=== PATIENT | female | born 1970 | race Caucasian/White ===

== ENCOUNTER 2017-09-28 05:55 | Inpatient (IN) | payer OTHER ==
[2017-09-28] MEDS ORDERED: LIDOCAINE 2% (SDV) 5 ML INJ (06:23)
[2017-09-28] MEDS ORDERED: PROPOFOL 20 ML (06:23)
[2017-09-28] MEDS ORDERED: GLYCOPYRROLATE 0.4 MG INJ (06:23)
[2017-09-28] MEDS ORDERED: ROCURONIUM 50 MG INJ (06:23)
[2017-09-28] MEDS ORDERED: NEOSTIGMINE 3 MG/3 ML SYRINGE (06:23)
[2017-09-28] MEDS ORDERED: FENTAnyl 50 MCG/ML VIAL (06:24)
[2017-09-28] MEDS ORDERED: MIDAZOLAM 1 MG/ML 2 ML INJ (06:24)
[2017-09-28] MEDS ORDERED: DEXAMETHASONE 4 MG/ML 1 ML INJ (06:25)
[2017-09-28] MEDS ORDERED: ONDANSETRON 4 MG INJ (06:25)
[2017-09-28] MEDS ORDERED: morphine SULFATE/PF (10 MG/10 ML) INJ (06:28)
[2017-09-28] MEDS ORDERED: ATROPINE 1 MG/10 ML SYRINGE IV (06:30)
[2017-09-28] MEDS ORDERED: MIDAZOLAM 1 MG/ML 2 ML INJ IV (06:30)
[2017-09-28] MEDS ORDERED: morphine (1 MG/ML) 10ML SYRINGE IV ×3 (06:30)
[2017-09-28] MEDS ORDERED: EPHEDrine SULFATE 50 MG/5 ML SYG IV (06:30)
[2017-09-28] MEDS ORDERED: ONDANSETRON 4 MG INJ IV (06:30)
[2017-09-28] MEDS ORDERED: OXYCODONE/ACETAMINOPHEN (5/325) TAB PO ×2 (06:30)
[2017-09-28] MEDS ORDERED: hydrALAzine 20 MG INJ IV (06:30)
[2017-09-28] MEDS ORDERED: DIPHENHYDRAMINE 50 MG INJ IV (06:30)
[2017-09-28] MEDS ORDERED: MEPERIDINE 25 MG INJ IV (06:30)
[2017-09-28] MEDS ORDERED: LABETALOL HCL 20MG INJ IV (06:30)
[2017-09-28] MEDS ORDERED: FENTAnyl 50 MCG/ML VIAL IV ×2 (06:30)
[2017-09-28] MEDS ORDERED: HYDROmorphONE (0.2 MG/ML) 10ML SYG IV ×3 (06:30)
[2017-09-28] MEDS ORDERED: BUPIVACAINE 0.75%/DEXT (SPINAL) 2 ML INJ (06:42)
[2017-09-28] MEDS ORDERED: CEFAZOLIN 1 GM INJ (07:00)
[2017-09-28] MEDS ORDERED: LABETALOL HCL 20MG INJ (08:21)
[2017-09-28] MEDS: VASOPRESSIN 20 UNITS INJ (08:21)
[2017-09-28] MEDS: LACTATED RINGER'S 1,000 ML IV ×3 (11:34→20:17)
[2017-09-28 15:18] LABS: ADD MAN DIFF? NO
[2017-09-28 15:26] LABS: ABNORMAL IP MESSAGE 1; BASOPHILS % 0.1 % (0.0-2.0); HEMATOCRIT 38.6 % (37.0-47.0); HEMOGLOBIN 13.1 g/dl (12.0-16.0); LYMPHOCYTES # 0.6 10^3/ul (0.8-2.9); LYMPHOCYTES % 3.9 % (15.0-51.0); MEAN CORPUSCULAR HGB CONC 33.9 g/dl (32.0-37.0); MEAN CORPUSCULAR VOLUME 88.5 fl (82.0-101.0); MEAN PLATELET VOLUME 11.4 fl (7.4-10.4); MONOCYTE # 0.3 10^3/ul (0.3-0.9); MONOCYTES % 1.7 % (0.0-11.0); NEUTROPHIL # 13.9 10^3/ul (1.6-7.5); NEUTROPHILS % 93.8 % (39.0-77.0); PLATELET COUNT 282 10^3/UL (140-415); RED BLOOD COUNT 4.36 10^6/ul (4.20-5.40); RED CELL DISTRIBUTION WIDTH 11.8 % (11.5-14.5)
[2017-09-28 15:26] LABS: WHITE BLOOD COUNT 14.8 10^3/ul (4.8-10.8)
[2017-09-28 15:32] LABS: POSITIVE DIFF @See below
[2017-09-28 15:35] LABS: PLATELET COUNT 291 10^3/UL (140-415)
[2017-09-28 15:57] LABS: INR 1.08; PROTIME 14.1 Sec (11.9-14.9); PT RATIO 1.1
[2017-09-28 15:58] LABS: PARTIAL THROMBOPLASTIN TIME 31.8 Sec (25.0-35.0)
[2017-09-28 16:00] LABS: ALANINE AMINOTRANSFERASE 23 IU/L (13-69); ALBUMIN 3.6 g/dl (3.3-4.9); ALBUMIN/GLOBULIN RATIO 1.05; ALKALINE PHOSPHATASE 56 IU/L (42-121); ANION GAP 16 (8-16); ASPARTATE AMINO TRANSFERASE 24 IU/L (15-46); BILIRUBIN,INDIRECT 0.2 mg/dl (0-1.1); BILIRUBIN,TOTAL 0.2 mg/dl (0.2-1.3); BLOOD UREA NITROGEN 7 mg/dl (7-20); CALCIUM 8.4 mg/dl (8.4-10.2); CARBON DIOXIDE 25 mmol/L (21-31); CHLORIDE 106 mmol/L (97-110); CREATININE 0.63 mg/dl (0.44-1.00); GLUCOSE 140 mg/dl (70-220); POTASSIUM 3.8 mmol/L (3.5-5.1); SODIUM 143 mmol/L (135-144)
[2017-09-28 16:14] LABS: THROMBIN TIME 16.1 SEC (13.8-19.1)
[2017-09-28] MEDS: ONDANSETRON 4 MG INJ IV (20:08)
[2017-09-28] MEDS: DIPHENHYDRAMINE 25 MG CAP PO (21:20)
[2017-09-29] MEDS: LACTATED RINGER'S 1,000 ML IV (03:00)
[2017-09-29] MEDS: DIPHENHYDRAMINE 25 MG CAP PO (03:38)
[2017-09-29 05:16] LABS: ADD MAN DIFF? NO
[2017-09-29 05:28] LABS: BASOPHILS % 0.1 % (0.0-2.0); EOSINOPHILS % 0.1 % (0.0-7.0); HEMATOCRIT 30.9 % (37.0-47.0); HEMOGLOBIN 10.5 g/dl (12.0-16.0); LYMPHOCYTES # 1.3 10^3/ul (0.8-2.9); LYMPHOCYTES % 10.3 % (15.0-51.0); MEAN CORPUSCULAR HEMOGLOBIN 30.1 pg (29.0-33.0); MEAN CORPUSCULAR VOLUME 88.5 fl (82.0-101.0); MEAN PLATELET VOLUME 11.2 fl (7.4-10.4); MONOCYTES % 7.5 % (0.0-11.0); NEUTROPHIL # 10.3 10^3/ul (1.6-7.5); NEUTROPHILS % 81.6 % (39.0-77.0); PLATELET COUNT 268 10^3/UL (140-415); RED BLOOD COUNT 3.49 10^6/ul (4.20-5.40)
[2017-09-29 05:28] LABS: WHITE BLOOD COUNT 12.6 10^3/ul (4.8-10.8)
[2017-09-29 05:41] LABS: ALANINE AMINOTRANSFERASE 24 IU/L (13-69); ALKALINE PHOSPHATASE 43 IU/L (42-121); ANION GAP 12 (8-16); ASPARTATE AMINO TRANSFERASE 21 IU/L (15-46); BILIRUBIN,INDIRECT 0.2 mg/dl (0-1.1); BILIRUBIN,TOTAL 0.2 mg/dl (0.2-1.3); BLOOD UREA NITROGEN 6 mg/dl (7-20); CALCIUM 8.3 mg/dl (8.4-10.2); CARBON DIOXIDE 29 mmol/L (21-31); CHLORIDE 107 mmol/L (97-110); CREATININE 0.65 mg/dl (0.44-1.00); GLUCOSE 101 mg/dl (70-220); SODIUM 144 mmol/L (135-144)
[2017-09-29] MEDS: MAGNESIUM HYDROXIDE 30ML CUP PO ×2 (06:03→17:47)
[2017-09-29] MEDS: BISACODYL 10 MG SUPP PR ×2 (06:04→17:47)
[2017-09-29] MEDS: ONDANSETRON 4 MG INJ IV (07:48)
[2017-09-29 09:07] LABS: ADD UMIC NO; UR ASCORBIC ACID NEGATIVE (NEGATIVE); UR BILIRUBIN (Dip) NEGATIVE (NEGATIVE); UR BLOOD (Dip) NEGATIVE (NEGATIVE); UR CLARITY CLEAR (CLEAR); UR COLOR STRAW (YELLOW); UR GLUCOSE (Dip) NEGATIVE (NEGATIVE); UR KETONES (Dip) NEGATIVE (NEGATIVE); UR LEUKOCYTE ESTERASE (Dip) NEGATIVE Leu/ul (NEGATIVE); UR NITRITE (Dip) NEGATIVE (NEGATIVE); UR SPECIFIC GRAVITY (Dip) 1.006 (1.003-1.030); UR TOTAL PROTEIN (Dip) NEGATIVE (NEGATIVE); UR UROBILINOGEN (Dip) NEGATIVE (NEGATIVE)
[2017-09-29] MEDS ORDERED: OXYCODONE/ACETAMINOPHEN (5/325) TAB PO (09:30)
[2017-09-29] MEDS: OXYCODONE/ACETAMINOPHEN (5/325) TAB PO ×3 (09:32→20:24)
[2017-09-30] MEDS: IBUPROFEN 600 MG TAB PO ×2 (00:14→07:41)
[2017-09-30 05:30] LABS: ADD MAN DIFF? NO
[2017-09-30 05:32] LABS: WHITE BLOOD COUNT 7.2 10^3/ul (4.8-10.8)
[2017-09-30 05:32] LABS: BASOPHILS % 0.3 % (0.0-2.0); EOSINOPHILS # 0.1 10^3/ul (0.0-0.5); EOSINOPHILS % 0.7 % (0.0-7.0); HEMATOCRIT 29.8 % (37.0-47.0); HEMOGLOBIN 9.9 g/dl (12.0-16.0); LYMPHOCYTES # 1.9 10^3/ul (0.8-2.9); LYMPHOCYTES % 26.4 % (15.0-51.0); MEAN CORPUSCULAR HGB CONC 33.2 g/dl (32.0-37.0); MEAN CORPUSCULAR VOLUME 90.3 fl (82.0-101.0); MEAN PLATELET VOLUME 11.2 fl (7.4-10.4); MONOCYTE # 0.6 10^3/ul (0.3-0.9); MONOCYTES % 8.7 % (0.0-11.0); NEUTROPHIL # 4.6 10^3/ul (1.6-7.5); NEUTROPHILS % 63.8 % (39.0-77.0); PLATELET COUNT 221 10^3/UL (140-415); RED CELL DISTRIBUTION WIDTH 12.2 % (11.5-14.5)
== END 2017-09-30 13:20 | disposition home or self-care (01) | DRG 743 ==
LOC: REC 05:55 → MS1 11:08
PROVIDERS: Obstetrics & Gynecology
PROC: 0UB90ZZ Excision of Uterus, Open Approach (ICD-10-PCS; principal; 2017-09-28 07:27)
PROC: 0UDB8ZZ Extraction of Endometrium, Via Natural or Artificial Opening Endoscopic (ICD-10-PCS; 2017-09-28 07:27)
DX: D25.9 Leiomyoma of uterus, unspecified (principal); N92.0 Excessive and frequent menstruation with regular cycle; R10.2 Pelvic and perineal pain
CPT/HCPCS: 80053; 81003; 84702; 85025; 85049; 85610; 85670; 85730; 86850; 86900; 86901; 87086; 88305

== ENCOUNTER 2017-10-07 16:09 | Emergency (ER) | payer OTHER ==
[2017-10-07] MEDS: MAGNESIUM CITRATE 300 ML BTL PO (19:05)
[2017-10-07] MEDS: SOD CHLORIDE 0.9% 500 ML IV (19:05)
[2017-10-07] MEDS: KETOROLAC 30 MG INJ IV (19:05)
== END 2017-10-07 19:38 | disposition home or self-care (01) ==
LOC: E/R 16:09
DX: K59.00 Constipation, unspecified (principal); G89.18 Other acute postprocedural pain; F17.210 Nicotine dependence, cigarettes, uncomplicated
CPT/HCPCS: 96374; 99284-25